=== PATIENT | female | born 1955 | race Caucasian/White ===

== ENCOUNTER 2021-11-24 08:15 | Outpatient (CLI) | payer OTHER | END 2021-11-24 08:23 | disposition home or self-care (01) | LOC: TOM 08:15 | PROVIDERS: ATTEND Internal Medicine | DX: K57.10 Diverticulosis of small intestine without perforation or abscess without bleeding (principal); K92.9 Disease of digestive system, unspecified ==

== ENCOUNTER 2022-01-08 07:32 | Outpatient (CLI) | payer OTHER | END 2022-01-08 09:59 | disposition home or self-care (01) | LOC: TOM 07:32 | DX: A09 Infectious gastroenteritis and colitis, unspecified (principal); K52.9 Noninfective gastroenteritis and colitis, unspecified ==